=== PATIENT | male | born 1950 | race Caucasian/White ===

== ENCOUNTER 2016-10-18 07:48 | Emergency (ER) | payer MEDICARE, OTHER ==
[2016-10-18] MEDS ORDERED: HYDROCODONE/ACETAMINOPHEN 5-325 MG TABLET PO ONE (07:54)
[2016-10-18] MEDS ORDERED: NORMAL SALINE 1000 ML 1,000 ML IV ONE (08:12)
--- NOTE | 2016-10-18 08:15 | ER Document Report ---
ED General - General Stated Complaint: FALL/LEFT HIP PAIN Time Seen by Provider: 10/18/16 07:54 Mode of Arrival: Medic Information source: Patient Notes: 66-year-old male history of bone marrow transplant presents with complaints of a fall yesterday patient denies any fevers or chills denies any chest pain shortness breath difficulty breathing. Patient notes he gets dizzy often and has multiple falls, multiple old abrasions contusions noted. Patient notes yesterday's abrasion caused skin tears on his left forearm TRAVEL OUTSIDE OF THE [place] IN LAST 30 DAYS: No - HPI Onset: Yesterday Onset/Duration: Sudden Quality of pain: Achy Severity: Mild Pain Level: 1 Associated symptoms: Body/muscle aches, Other Exacerbated by: Walking - Patient is able to ambulate Relieved by: Denies Similar symptoms previously: Yes Recently seen / treated by doctor: Yes - Related Data Allergies/Adverse Reactions: Penicillins Allergy (Unknown, Verified 12/29/15 12:35) Past Medical History - Social History Smoking Status: Never Smoker Cigarette use (# per day): No Chew tobacco use (# tins/day): No Smoking Education Provided: No Family History: CAD, Malignancy - Past Medical History Cardiac Medical History: Reports: Hx Hypercholesterolemia, Hx Hypertension Endocrine Medical History: Reports: 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 Denies recent illness. EENT: Denies eye, ear, throat, or mouth pain or symptoms. Denies nasal or sinus congestion or discharge. Denies throat, tongue, or mouth swelling or difficulty swallowing. CARDIOVASCULAR: Denies chest pain. Denies palpitations or racing or irregular heart beat. Denies ankle edema. RESPIRATORY: Denies cough, cold, or chest congestion. Denies shortness of breath, difficulty breathing, or wheezing. GASTROINTESTINAL: Denies abdominal pain or distention. Denies nausea, vomiting , or diarrhea. Denies blood in vomitus, stools, or per rectum. Denies black, tarry stools. Denies constipation. GENITOURINARY: Denies difficulty urinating, painful urination, burning, frequency, blood in urine, or discharge. MUSCULOSKELETAL: Admits left hip pain SKIN: Admits to left forearm skin tear HEMATOLOGIC : Denies easy bruising or bleeding. LYMPHATIC: Denies swollen, enlarged glands. NEUROLOGICAL: Denies confusion or altered mental status. Denies passing out or loss of consciousness. Denies dizziness or lightheadedness. Denies headache. Denies weakness or paralysis or loss of use of either side. Denies problems with gait or speech. Denies sensory loss, numbness, or tingling. Denies seizures. PSYCHIATRIC: Denies anxiety or stress. Denies depression, suicidal ideation, or homicidal ideation. ALL OTHER SYSTEMS REVIEWED AND NEGATIVE. Dictation was performed using [employer] voice recognition software PHYSICAL EXAMINATION: GENERAL: Well-appearing, well-nourished and in no acute distress. HEAD: Atraumatic, normocephalic. EYES: Pupils equal round and reactive to light, extraocular movements intact, sclera anicteric, conjunctiva are normal. ENT: Nares patent, oropharynx clear without exudates. Moist mucous membranes. NECK: Normal range of motion, supple without lymphadenopathy LUNGS: Breath sounds clear to auscultation bilaterally and equal. No wheezes rales or rhonchi. HEART: Tachycardic ABDOMEN: Soft, nontender, nondistended abdomen. No guarding, no rebound. No masses appreciated. Musculoskeletal: Pain with range of motion of the left hip NEUROLOGICAL: Cranial nerves grossly intact. Normal speech, normal gait. Normal sensory, motor exams PSYCH: Normal mood, normal affect. SKIN: Skin tears noted left upper extremity area was explored and will be cleansed Course - Re-evaluation Re-evalutation: 10/18/16 08:15 Physical examination notes a well-appearing male who is having pain secondary to fall. he will be given pain control he is noted to be tachycardic but denies any fevers chills nausea vomiting diarrhea chest pain shortness of breath or any concerns for pulmonary emboli. Lab work has been requested to evaluate the patient x-ray pending 10/18/16 10:03 Patient notes he has sleep apnea, he becomes hypoxic when he is resting. Family is aware of this and patient refuses to wear BiPAP or CPAP, I explained my concerns as uncontrolled sleep apnea can cause life-threatening issues. Otherwise patient is in no distress denies any chest pain shortness of breath or any DVT or PE complaints I will discharge home with pain control and they have follow-up tomorrow at [place] After performing a Medical Screening Examination, I estimate there is LOW risk for INTRACRANIAL HEMORRHAGE, UNSTABLE SPINE FRACTURE, CENTRAL CORD SYNDROME, CAUDA EQUINA, THORACIC AORTIC DISSECTION, PNEUMOTHORAX, PERFORATED BOWEL, RUPTURED ABDOMINAL AORTIC ANEURYSM, ACUTE TENDON RUPTURE, COMPARTMENT SYNDROME, or OPEN FRACTURE, thus I consider the discharge disposition reasonable. Also, there is no evidence or peritonitis, sepsis, or toxicity. I have reevaluated this patient multiple times and no significant life threatening changes are noted. The patient and I have discussed the diagnosis and risks, and we agree with discharging home to follow-up with their primary doctor with the understanding that symptoms and presentations can change. We also discussed returning to the Emergency Department immediately if new or worsening symptoms occur. We have discussed the symptoms which are most concerning (e.g., bloody stool, fever, changing or worsening pain, vomiting) that necessitate immediate return. - Laboratory Result Diagrams: 10/18/16 08:35 10/18/16 08:35 Laboratory results interpreted by me: 10/18/16 10/18/16 10/18/16 08:35 08:35 09:23 RBC 3.06 L Hgb 10.2 L Hct 29.7 L RDW 20.5 H Plt Count 106 L Monocytes % 14.1 H VBG pH 7.44 H BUN 21 H Total Protein 5.5 L Albumin 3.2 L - Diagnostic Test Radiology reviewed: Image reviewed, Reports reviewed Discharge - Discharge Clinical Impression: Tachycardia, Skin abrasion Hip pain Qualifiers: Laterality: left Qualified Code(s): M25.552 - Pain in left hip Condition: Stable Disposition: HOME, SELF-CARE Instructions: Sinus Tachycardia ([facility]), Delayed Wound Closure ([facility]), Low Back Pain ([facility]) Prescriptions: Hydrocodone Bit/Acetaminophen [Hydrocodon-Acetaminophen 5-325] 1 each PO Q6 #20 tablet Referrals: ROSA CLIFTON MD [Primary Care Provider] - Follow up tomorrow
[2016-10-18 08:59] LABS: ABSOLUTE EOSINOPHILS # (AUTO) 0.1 10^3/uL (0.0-0.6); ABSOLUTE LYMPHOCYTES (AUTO) 1.7 10^3/uL (0.5-4.7); ABSOLUTE MONOCYTES (AUTO) 0.8 10^3/uL (0.1-1.4); BASOPHILS % (AUTO) 0.5 % (0-2); EOSINOPHILS % (AUTO) 1.7 % (0-6); HEMATOCRIT 29.7 % (37.9-51.0); HEMOGLOBIN 10.2 g/dL (13.5-17.0); HGB HCT DIFFERENCE 0.9; LYMPHOCYTES % (AUTO) 30.1 % (13-45); MEAN CORPUSCULAR HEMOGLOBIN 33.2 pg (27.0-33.4); MEAN CORPUSCULAR HGB CONC 34.2 g/dL (32.0-36.0); MEAN CORPUSCULAR VOLUME 97 fl (80-97); MONOCYTES % (AUTO) 14.1 % (3-13); RED BLOOD COUNT 3.06 10^6/uL (4.35-5.55); RED CELL DISTRIBUTION WIDTH 20.5 % (11.5-14.0); SEGMENTED NEUTROPHILS % (AUTO) 53.6 % (42-78); WHITE BLOOD COUNT 5.6 10^3/uL (4.0-10.5)
[2016-10-18 09:14] LABS: ALANINE AMINOTRANSFERASE 36 U/L (21-72); ALBUMIN 3.2 g/dL (3.5-5.0); ALKALINE PHOSPHATASE 105 U/L (38-126); ANION GAP 8 (5-19); ASPARTATE AMINO TRANSFERASE 34 U/L (17-59); BILIRUBIN,DIRECT 0.2 mg/dL (0.0-0.4); BILIRUBIN,TOTAL 0.8 mg/dL (0.2-1.3); BLOOD UREA NITROGEN 21 mg/dL (7-20); CALCIUM 8.9 mg/dL (8.4-10.2); CARBON DIOXIDE 24 mmol/L (22-30); CHLORIDE 105 mmol/L (98-107); CREATININE RESULT 0.84 mg/dL (0.52-1.25); GLUCOSE 91 mg/dL (75-110); POTASSIUM 4.2 mmol/L (3.6-5.0); SODIUM 137.3 mmol/L (137-145); TOTAL PROTEIN 5.5 g/dL (6.3-8.2)
--- NOTE | 2016-10-18 09:16 | RADIOLOGY REPORT (SQ) ---
EXAM DESCRIPTION: HIP LEFT AP/LATERAL COMPLETED DATE/TIME: 10/18/2016 9:06 am REASON FOR STUDY: fall COMPARISON: None. NUMBER OF VIEWS: Two views. TECHNIQUE: AP pelvis and additional frog-leg view of the left hip. LIMITATIONS: None. FINDINGS: MINERALIZATION: Osteopenia. LEFT HIP: No fracture or dislocation. No worrisome bone lesions. RIGHT HIP: No fracture or dislocation. No worrisome bone lesions. PUBIS AND ISCHIUM: No fracture. Degenerative changes noted in the pubic symphysis. PELVIS: No fracture. SACRUM: No fracture or dislocation. No worrisome bone lesions. LOWER LUMBAR SPINE: No fracture or dislocation. No worrisome bone lesions. No significant disc disea se. SOFT TISSUES: Pelvic phleboliths noted. Stool noted in the rectum. OTHER: No other significant finding. IMPRESSION: No acute fracture or dislocation identified. Osteopenia. TECHNICAL DOCUMENTATION: JOB ID: [id number] [employer]- All Rights Reserved
[2016-10-18 09:33] LABS: PROTHROMBIN TIME 13.8 SEC (11.4-15.4)
[2016-10-18 09:40] LABS: VENOUS BLOOD BASE EXCESS 2.8 mmol/L; VENOUS BLOOD HCO3 27.1 mmol/L (20-32); VENOUS BLOOD PCO2 40.7 mmHg (35-63); VENOUS BLOOD PH 7.44 (7.30-7.42)
[2016-10-18 12:16] VITALS: BP 130/95
--- NOTE | 2016-10-18 13:34 | EKG REPORT ---
SEVERITY:- ABNORMAL ECG - SINUS TACHYCARDIA LEFT AXIS DEVIATION LEFT VENTRICULAR HYPERTROPHY : Confirmed by: Yang Sage MD 18-Oct-2016 13:33:25
== END 2016-10-18 12:16 | disposition home or self-care (01) ==
LOC: ER 07:48
DX: S51.812A Laceration without foreign body of left forearm, initial encounter (principal); M25.552 Pain in left hip; W19.XXXA Unspecified fall, initial encounter; Y92.008 Other place in unspecified non-institutional (private) residence as the place of occurrence of the external cause; R00.0 Tachycardia, unspecified; I10 Essential (primary) hypertension; E11.9 Type 2 diabetes mellitus without complications; G47.30 Sleep apnea, unspecified; Z91.19 Patient's noncompliance with other medical treatment and regimen; Z85.6 Personal history of leukemia; Z98.890 Other specified postprocedural states; Z88.0 Allergy status to penicillin
CPT/HCPCS: 93005; 99284; 36415; 87040; 85025; 85610; 80053; 82803; 83605; 73502; 93010; J7030; A9270

== ENCOUNTER 2017-04-10 14:59 | Day surgery (SDC) | payer MEDICARE, OTHER ==
[2017-04-10] MEDS ORDERED: NALOXONE HCL INJ/PF 0.4 MG/1 ML SDV ONE (16:10)
[2017-04-10] MEDS ORDERED: MIDAZOLAM 2 MG/2 ML INJ ONE (16:11)
[2017-04-10] MEDS ORDERED: GLUCAGON,HUMAN RECOMB 1 MG INJ ONE (16:11)
[2017-04-10] MEDS ORDERED: FLUMAZENIL INJ 0.5 MG/5 ML VIAL ONE (16:11)
[2017-04-10] MEDS ORDERED: FENTANYL CITRATE INJ/PF 100 MCG/2 ML AMPUL ONE (16:11)
[2017-04-10] MEDS ORDERED: EPINEPHRINE INJ 1 MG/10 ML DISP.SYRIN ONE (16:11)
--- NOTE | 2017-04-10 17:23 | Operative Report ---
Operative Report DATE OF SURGERY: 04/10/17 Operative Report: Pre-op diagnosis: Dysphagia Post-op diagnosis: 1. Grade C esophagitis 2. Mid esophageal stricture 3. Mild antral gastritis Surgery: Esophagogastroduodenoscopy with biopsy Medications: Versed 2mg Fentanyl 50mcg IV push Tissue removed: Antral and esophageal biopsy for pathology Procedure: After informed consent obtained from patient, the throat was sprayed with Hurricane and conscious sedation was achieved. The upper endoscope was inserted into the esophagus under direct vision and advanced into the stomach. The duodenum was entered and examined to the second part. Endoscope was then slowly pulled out of the patient as the mucosa was examined into details. Patient tolerated procedure well. Findings Esophagus: He had multiple superficial erosions/ulcerations from the proximal to the distal esophagus. There was some scarring with stenosis at about 28 cm from the incisors. Some whitish exudates were also identified in the esophagus. Biopsy was taken from the proximal esophagus for pathology. Antrum: Mild erythema with a few nodules were identified. Biopsy was taken Body: Normal Fundus: Normal Duodenum first part: Normal Duodenum second part: Normal Plan: Await pathology. We will switch his pantoprazole to lansoprazole twice a day and repeat EGD in 6-8 weeks OPERATION: .
[2017-04-10] MEDS ORDERED: SIMETHICONE 80 MG TAB.CHEW ONE (17:58)
[2017-04-10 18:50] VITALS: BP 146/81
== END 2017-04-10 18:55 | disposition home or self-care (01) ==
LOC: END 14:59
PROVIDERS: ATTEND Internal Medicine Gastroenterology
PROC: 0DB68ZX Excision of Stomach, Via Natural or Artificial Opening Endoscopic, Diagnostic (ICD-10-PCS; 2017-04-10)
PROC: 0DB18ZX Excision of Upper Esophagus, Via Natural or Artificial Opening Endoscopic, Diagnostic (ICD-10-PCS; principal; 2017-04-10 15:45)
DX: K21.0 Gastro-esophageal reflux disease with esophagitis (principal); B37.81 Candidal esophagitis; K22.10 Ulcer of esophagus without bleeding; K22.2 Esophageal obstruction; K31.9 Disease of stomach and duodenum, unspecified; E78.00 Pure hypercholesterolemia, unspecified; I10 Essential (primary) hypertension; E11.9 Type 2 diabetes mellitus without complications; G47.30 Sleep apnea, unspecified; C91.00 Acute lymphoblastic leukemia not having achieved remission; Z86.73 Personal history of transient ischemic attack (TIA), and cerebral infarction without residual deficits; Z79.899 Other long term (current) drug therapy; Z79.82 Long term (current) use of aspirin; Z79.4 Long term (current) use of insulin; Z79.891 Long term (current) use of opiate analgesic; Z87.892 Personal history of anaphylaxis; Z88.1 Allergy status to other antibiotic agents; Z99.81 Dependence on supplemental oxygen
CPT/HCPCS: 43239; 82962; 88342 ×2; 88305 ×2; 88312 ×2; J2250; J3010; A9270; J0171; J1610; J2310; J3490

== ENCOUNTER 2017-06-12 15:34 | Day surgery (SDC) | payer MEDICARE, OTHER ==
[2017-06-12] MEDS ORDERED: NALOXONE HCL INJ/PF 0.4 MG/1 ML SDV ONE (16:08)
[2017-06-12] MEDS ORDERED: MIDAZOLAM 2 MG/2 ML INJ ONE ×2 (16:08→16:09)
[2017-06-12] MEDS ORDERED: EPINEPHRINE INJ 1 MG/10 ML DISP.SYRIN ONE (16:09)
[2017-06-12] MEDS ORDERED: FLUMAZENIL INJ 0.5 MG/5 ML VIAL ONE (16:09)
[2017-06-12] MEDS ORDERED: FENTANYL CITRATE INJ/PF 100 MCG/2 ML AMPUL ONE (16:09)
[2017-06-12] MEDS ORDERED: GLUCAGON,HUMAN RECOMB 1 MG INJ ONE (16:09)
--- NOTE | 2017-06-12 17:28 | Operative Report ---
Operative Report DATE OF SURGERY: 06/12/17 Operative Report: Pre-op diagnosis: History of esophagitis and stricture Post-op diagnosis: 1. Grade C midesophagitis 2. Mid esophageal stricture 3. Nodular antral gastritis Surgery: Esophagogastroduodenoscopy with brushing and biopsy Medications: Versed 3mg Fentanyl 100mcg IV push Tissue removed: Antral biopsy for pathology, esophageal brushing for JOHN Procedure: After informed consent obtained from patient, the throat was sprayed with Hurricane and conscious sedation was achieved. The upper endoscope was inserted into the esophagus under direct vision and advanced into the stomach. The duodenum was entered and examined to the second part. Endoscope was then slowly pulled out of the patient as the mucosa was examined into details. Patient tolerated procedure well. Findings Esophagus: There were whitish exudates noted in the oropharynx and the proximal esophagus. Patient also had large superficial erosions in the mid esophagus with stenoses at about 28 cm. This was not as bad as he had in March. Dilation will not be safe with his esophagitis Antrum: Mild erythema with a few nodules. Biopsy was taken from the antral nodules and also from the gastric body Body: Mild erythema Fundus: Normal Duodenum first part: Normal Duodenum second part: Normal Plan: Await pathology. Increase lansoprazole to 30 mg twice daily OPERATION: .
[2017-06-12 18:22] VITALS: BP 115/77
== END 2017-06-12 18:25 | disposition home or self-care (01) ==
LOC: END 15:34
PROVIDERS: ATTEND Internal Medicine Gastroenterology
DX: K22.2 Esophageal obstruction (principal); K21.0 Gastro-esophageal reflux disease with esophagitis; K29.70 Gastritis, unspecified, without bleeding; E78.00 Pure hypercholesterolemia, unspecified; I10 Essential (primary) hypertension; E11.9 Type 2 diabetes mellitus without complications; G47.30 Sleep apnea, unspecified; K21.9 Gastro-esophageal reflux disease without esophagitis; Z88.0 Allergy status to penicillin; Z79.82 Long term (current) use of aspirin; Z79.899 Other long term (current) drug therapy; Z79.51 Long term (current) use of inhaled steroids; Z99.81 Dependence on supplemental oxygen
CPT/HCPCS: 43239; 87210; 82962; 88341 ×2; 88305 ×2; J2250; J3010; 43235; J0171; J1610; J2310; J3490